=== PATIENT | male | born 1975 | race Caucasian/White ===

== ENCOUNTER 2017-11-16 07:49 | Day surgery (SDC) | payer MEDICARE ==
[~2017-11-16] VITALS: Ht 157.5 cm; Wt 96.6 kg
[~2017-11-16 07:49] MED LIST: ALBU90OI INH; BUDE.25 NEB; Bactrim Ds Tab1 EACH PO; CHLO25 PO; CLIN300 PO; Cleocin HCl300 MG PO; DOCU100 PO; FLAX SEED OIL1000 MG PO; FURO20 PO; HYDACE5 PO; K-Dur 20 meq T20 MEQ PO; LEVE500 PO; Lasix20 MG PO; MAGCHL64ER PO; Milk Thistle175 MG PO; OXYACE5T PO; PHENY100ER PO; PROP10 PO; Prednisone20 MG PO; Pulmicort Fle180 MCG INH; SULTRIDS PO; TAMS.4ER PO; Triamcinolone A15 G3 TOP; VITAMIN D31000 UNIT PO; Ventolin5 MG/1 ML NEB
== END 2017-11-16 14:31 | disposition home or self-care (01) ==
LOC: ORSCMMR 07:49 → SURS 12:44
PROVIDERS: Surgery
PROC: 0YU50JZ Supplement Right Inguinal Region with Synthetic Substitute, Open Approach (ICD-10-PCS; principal; 2017-11-16 09:15)
DX: K40.90 Unilateral inguinal hernia, without obstruction or gangrene, not specified as recurrent (principal); I10 Essential (primary) hypertension; J45.909 Unspecified asthma, uncomplicated; G40.909 Epilepsy, unspecified, not intractable, without status epilepticus; B19.20 Unspecified viral hepatitis C without hepatic coma
CPT/HCPCS: C1781; J1100; J1885; J2250; J2405; J3010; J7120